=== PATIENT | male | born 1955 | race Caucasian/White ===

== ENCOUNTER → 2024-06-23 06:25 | Outpatient (REF) | payer MEDICARE, OTHER, SELFPAY ==
[2024-06-23 07:29] LABS: % Basophils 0.7 % (0-2); % Eosinophils 6.7 % (0-6); % Immature Granulocytes 0.2 % (0-0.5); % Lymphocytes 46.1 % (20.5-51.1); % Monocytes 11.1 % (1.7-9.3); % Neutrophils 35.2 % (42.2-75.2); Absolute Eosinophils 0.3 10^3/uL (0-0.7); Absolute Lymphocytes 2.1 10^3/uL (1.2-3.4); Absolute Monocytes 0.5 10^3/uL (0.1-0.6); Absolute Neutrophils 1.6 10^3/uL (1.4-6.5); Hematocrit 46.3 % (39.0-52.0); Hemoglobin 16.1 g/dL (13.0-18.0); Mean Corp Hgb Conc. 34.8 g/dL (33.0-37.0); Mean Corpuscular Hgb 31.9 pg (27.0-31.0); Mean Corpuscular Volume 91.9 fL (80.0-94.0); Mean Platelet Volume 8.9 fL (7.4-10.4); Nucleated Red Blood Cells % 0 % (-); Platelet Count 235 10^3/uL (130-400); Red Blood Cell Count 5.04 10^6/uL (4.70-6.10); Red Cell Dist. Width 13.2 % (11.5-14.5); White Blood Cell Count 4.6 10^3/uL (4.8-10.8)
[2024-06-23 07:50] LABS: Urine Albumin Negative (Neg - Trace); Urine Bilirubin Negative (Negative); Urine Character Clear (Clear); Urine Color Yellow; Urine Glucose Negative (Negative); Urine Ketone Negative (Negative); Urine Leukocyte Negative (Negative); Urine Nitrite Negative (Negative); Urine Occult Blood Negative (Negative); Urine Specific Gravity 1.015 (<1.030); Urine Urobilinogen Negative (Neg - 1+)
[2024-06-23 08:32] LABS: ALT (SGPT) 39 U/L (0-50); AST (SGOT) 37 U/L (17-59); Albumin 4.7 g/dl (3.5-5.0); Alkaline Phosphatase 39 U/L (38-126); Blood Urea Nitrogen 19 mg/dl (9-20); Calcium 9.7 mg/dl (8.4-10.2); Carbon Dioxide 30 mmol/L (22-30); Chloride 101 mmol/L (98-107); Glucose 116 mg/dl (70-99); HDL Cholesterol 72 mg/dl; LDL Cholesterol, Calculated 126 mg/dl; Potassium 4.8 mmol/L (3.5-5.1); Sodium 142 mmol/L (135-145); Total Bilirubin 1.8 mg/dl (0.2-1.3); Total Cholesterol 231 mg/dl (50-199); Total Protein 7.5 g/dl (6.3-8.2); Triglyceride 165 mg/dl (10-149); Very Low Density Lipoprotein 33 mg/dl (0-30); eGFR > 60.00
[2024-06-23 08:47] LABS: PSA, Total - Screen 0.96 ng/ml (0.0-4.0); TSH 2.49 uIU/ml (0.47-4.68)
[2024-06-23 09:40] LABS: Vitamin D, 25-OH*** 35.1 ng/mL (30-80)
== END ==
LOC: REG 06:25
PROVIDERS: ATTENDING PHYSICIAN Internal Medicine Geriatric Medicine
DX: E78.2 Mixed hyperlipidemia (principal); Z00.00 Encounter for general adult medical examination without abnormal findings; Z12.5 Encounter for screening for malignant neoplasm of prostate; Z79.899 Other long term (current) drug therapy
CPT/HCPCS: 36415; 80053; 80061; 81003; 82306; 84443; 85025; G0103

== ENCOUNTER → 2025-04-22 06:48 | Outpatient (REF) | payer MEDICARE, OTHER, SELFPAY ==
[2025-04-22 07:32] LABS: Hematocrit 43.0 % (39.0-52.0); Hemoglobin 14.8 g/dL (13.0-18.0); Mean Corp Hgb Conc. 34.4 g/dL (33.0-37.0); Mean Corpuscular Volume 91.9 fL (80.0-94.0); Nucleated Red Blood Cells % 0 % (-); Platelet Count 244 10^3/uL (130-400); Red Cell Dist. Width 13.2 % (11.5-14.5)
[2025-04-22 07:56] LABS: Urine Character Clear (Clear)
[2025-04-22 07:56] LABS: ALT (SGPT) 31 U/L (0-50); AST (SGOT) 28 U/L (17-59); Albumin 4.4 g/dl (3.5-5.0); Alkaline Phosphatase 43 U/L (38-126); Blood Urea Nitrogen 21 mg/dl (9-20); Calcium 9.7 mg/dl (8.4-10.2); Carbon Dioxide 27 mmol/L (22-30); Chloride 105 mmol/L (98-107); Glucose 111 mg/dl (70-99); HDL Cholesterol 65 mg/dl; LDL Cholesterol, Calculated 142 mg/dl; Potassium 4.6 mmol/L (3.5-5.1); Sodium 137 mmol/L (135-145); Total Protein 7.2 g/dl (6.3-8.2); Very Low Density Lipoprotein 26 mg/dl (0-30); eGFR > 60.00
[2025-04-24 01:08] LABS: Lipoprotein a (Lp a) 24 mg/dL (<=29)
== END ==
LOC: REG 06:48
PROVIDERS: ATTENDING PHYSICIAN Internal Medicine Geriatric Medicine
DX: E78.2 Mixed hyperlipidemia (principal); M54.41 Lumbago with sciatica, right side; N52.9 Male erectile dysfunction, unspecified; R73.01 Impaired fasting glucose; M54.16 Radiculopathy, lumbar region; Z13.31 Encounter for screening for depression; R93.1 Abnormal findings on diagnostic imaging of heart and coronary circulation
CPT/HCPCS: 36415; 80053; 80061; 81003; 82172; 83695; 85025

== ENCOUNTER 2025-05-21 06:23 | Day surgery (SDC) | payer MEDICARE, OTHER, SELFPAY | END 2025-05-21 10:42 | disposition home or self-care (01) | LOC: GI 06:23 | PROVIDERS: ATTENDING PHYSICIAN Internal Medicine Gastroenterology | DX: Z12.11 Encounter for screening for malignant neoplasm of colon (principal); K64.8 Other hemorrhoids; K57.30 Diverticulosis of large intestine without perforation or abscess without bleeding; D12.2 Benign neoplasm of ascending colon; D12.3 Benign neoplasm of transverse colon; D12.4 Benign neoplasm of descending colon; Z80.0 Family history of malignant neoplasm of digestive organs; Z86.0100 Personal history of colon polyps, unspecified | CPT/HCPCS: 45385; 45380; 88305 ==

== ENCOUNTER → 2025-05-26 09:50 | Outpatient (REF) | payer MEDICARE, OTHER, SELFPAY | LOC: RAD 09:50 | PROVIDERS: ATTENDING PHYSICIAN Internal Medicine Geriatric Medicine | DX: E78.2 Mixed hyperlipidemia (principal); R93.1 Abnormal findings on diagnostic imaging of heart and coronary circulation; M54.41 Lumbago with sciatica, right side; N52.9 Male erectile dysfunction, unspecified; R73.01 Impaired fasting glucose; M54.16 Radiculopathy, lumbar region; Z13.31 Encounter for screening for depression | CPT/HCPCS: 75574; Q9967 ==

== ENCOUNTER 2025-06-06 21:17 | Emergency (ER) | payer MEDICARE, OTHER, SELFPAY ==
[2025-06-06 21:23] VITALS: BP 141/90
--- NOTE | 2025-06-06 22:44 | ED.GENMED ---
History of Present Illness
General
Chief Complaint: Numbness
Source: patient, spouse (significant other) and previous radiology exam (CT coronary angiogram with contrast May 26 showing overall calcium score of 535, indicating extensive plaque burden. Focal calcification and narrowing of the distal left
main and proximal LAD in the range of 50% diameter reduction which could represent a hemodynamically significant stenosis. F)
Exam Limitations: none
Time Seen by Provider: 06/06/25 22:23
Nursing documentation reviewed up to this point in time: agreed with except (Patient has no prior history of hypertension.)
History of Present Illness
History of Present Illness:
The patient is a 69-year-old male who presents with numbness in the left arm. He reports waking up this morning with the sensation, which resolved but recurred later in the evening while sitting in a chair. He has not experienced any weakness,
dropping objects, chest pain nor shortness of breath. He mentions that the numbness was localized more towards his left upper arm to his left forearm. The patient denied associated symptoms like headache or chest discomfort and reports being active
without issues. The patient noted neck pain today, especially at the back, but no recent injury or trauma.
He exercises on a regular basis without symptomatology. He was lifting weights yesterday and was doing push-ups today again without symptomatology.
The patient recently underwent a cardiac computed tomography angiogram (CTA) which showed calcifications with a coronary artery calcium score over 500, leading to a referral for a follow-up with a clinical psychiatrist.
He has an initial appointment with Leonila Bettencourt this Sunday. He has a history of elevated cholesterol, tried statins in the past but experienced muscle aches. He states his LDL cholesterol is 150.
No family history of CAD. States his father had an aortic aneurysm later in life but he was a lifelong smoker as well.
Patient's daily medications include Eliquis 2.5 mg twice daily, vitamin D.
He currently denies numbness.
Past History
Past History
ED Past Medical History: Hypercholesterolemia, Other (DVT times 30 June 2020 and again August 2023. Reports unremarkable hypercoagulable workup with hematology. Chronically maintained on Eliquis 2.5 mg twice daily.) and Other (The patient has
a history of deep vein thrombosis (DVT) in 2019 and 2023 and is on lifelong anticoagulation with apixaban (Eliquis) at 2.5 mg twice a day. He also reports a history of hyperlipidemia with a total cholesterol level of 225 mg/dL and LDL at 150 mg/dL.)
ED Past Surgical History: Orthopedic
Social History
Tobacco: Non-smoker
Alcohol: Occasional (Rare alcohol use)
Drug: None
Personal:
Living: with family (Resides with his female partner)
Employment: Retired
Family History
Family History: Other (Father had an abdominal aortic aneurysm.)
Phy Exam
Physical Exam
Physical Exam:
GENERAL: 69-year-old gentleman appears his stated age, bright and alert, pleasant, appears in no acute distress.
EYE: anicteric
NECK: Supple, nontender, no meningismus, no significant adenopathy.
ENT: oral mucosa is moist. No rhinorrhea.
CARDIAC: Regular rate and rhythm. no murmur.
LUNGS: Clear breath sounds bilaterally, no acute respiratory distress, no wheezes/rales/rhonchi
ABDOMEN: Soft, nondistended, without focal tenderness, normoactive BS.
NEUROLOGICAL: Alert and oriented x3, no focal neuro deficits. Motor strength is 5/5 bilaterally. Gross sensation is intact.
SKIN: Warm and dry, normal color, skin intact. No rash.
MUSCULOSKELETAL: No C/C/E. peripheral pulses are full and equal b/l. No palpable tenderness.
PSYCH: Normal and appropriate interaction.
Course
Orders/Labs/Results
Orders:
Orders
06/06/25 21:18
EKG [Electrocardiogram (*1)] Urgent
Reason for Study: Tachycardia
EKG- Treatment ONCE
06/06/25 23:11
Complete Blood Count/With Diff Urgent
Comprehensive Metabolic Panel Urgent
Troponin I Urgent
Abnormal Lab Results
06/06/25
23:11
RBC 4.38 L 10^6/uL
(4.70-6.10)
MCH 31.5 H pg
(27.0-31.0)
Absolute Monos (auto) 0.7 H 10^3/uL
(0.1-0.6)
Monocytes % 11.6 H %
(1.7-9.3)
BUN 25 H mg/dl
(9-20)
Glucose 109 H mg/dl
(70-99)
06/06/25 23:11
06/06/25 23:11
Vital Signs
Initial and Last Documented VS:
Initial Vital Signs
Temp Pulse Resp BP Pulse Ox
98.0 F 84 20 141/90 97
06/06/25 21:23 06/06/25 21:23 06/06/25 21:23 06/06/25 21:23 06/06/25 21:23
Last Documented Vital Signs
Temp Pulse Resp BP Pulse Ox
98.0 F 68 18 122/72 95
06/06/25 21:23 06/06/25 23:05 06/06/25 23:05 06/06/25 23:05 06/06/25 23:05
MDM/Problems Addressed
Differential Diagnosis Includes:
The Differential Diagnosis includes, in no particular order and is not limited to:
1. Peripheral neuropathy
2. Cervical radiculopathy
3. Carpal tunnel syndrome
4. Myocardial ischemia
5. Transient ischemic attack
6. Brachial plexus injury
7. Muscular strain
8. Anxiety
9. Vitamin deficiency (such as B12 or D)
10. Thoracic outlet syndrome
MDM/Problems Addressed:
Acute Problems:
- Numbness in the left arm
Chronic Problems:
- Hyperlipidemia
- Recurrent DVT
Overall history appears more consistent with peripheral neuropathy such as ulnar nerve compression versus cervical radiculopathy.
Reassuring that patient has not no other associated symptoms and also reassuring that symptoms do not occur with activity/exercise.
CT coronary calcium score however significantly elevated over 500 with focal calcification of the distal left main and proximal LAD concerning for 50% focal narrowing.
He does have history of DVT x 2 with reported unremarkable hypercoagulable workup as per hematology. Due to DVT x 2 in the past, chronically maintained on Eliquis 2.5 mg twice daily.
There is nothing in history nor exam to suggest upper extremity DVT nor PE, he has had no chest pain or shortness of breath and remains active without symptomatology.
EKG shows normal sinus rhythm with first-degree AV block, overall similar and unchanged from previous EKG 2018
Will check labs including troponin.
At this point no indication for further radiologic studies.
Chronic conditions affecting care: Other (Hyperlipidemia; elevated coronary calcium score over 500; history of unprovoked DVTs x 2)
*Pulse Oximetry
SaO2: 97
Oxygen Mode of Delivery: Room air
Patient hypoxic: no
*EKG
Interpreted by ED Provider?: Yes
Comparison EKG: no changes (Unchanged from previous 2018)
Rate: normal
Rhythm: sinus
[place]: normal axis
Interval: first degree heart block
QRS Pattern: normal QRS
Ischemia: no ischemia
*Allopathic Doctor Interpretation
Rate: normal
Interpretation: normal
Rhythm: sinus
*Critical Care Note
Total Time (30-74mins, 75-104mins- exclusive of procedures): Not Applicable
Update Note
Update Note:
00:05
Labs are all unremarkable including negative troponin.
Patient remains asymptomatic.
Will discharge to home with plan for follow-up with cardiology as already scheduled, Sunday, June 10.
ED Attending Note
-
Portions of this chart may have been created with voice recognition software.� Occasional wrong word or��sound alike� substitutions may have occurred due to the inherent limitations of voice recognition software.
Discharge Plan
Departure
Patient Disposition: Home (Routine Discharge)
Date of Disposition: 06/07/25
Time of Disposition: 00:06
Patient with high blood pressure during this ER visit?: No
Condition: Good
Discharge Problem:
Left arm numbness
Instructions: Peripheral Neuropathy (DC), Paresthesia (DC)
Prescriptions:
No Action
cyclobenzaprine [Flexeril] 10 MG tablet
10 mg PO TID PRN (Reason: back pain)
prednisone 10 MG tablet
40 mg PO DAILY PRN (Reason: SEE TAPER)
Patient Comments:
patient is taking taper dose/back pain- STARTED 60MG DAILY X2 DAYS THAN DECREASE TO 40MG X 2 DAYS THAN 20MG X 2 DAYS THAN D/C
aspirin 81 MG tablet,delayed release (DR/EC)
81 - 162 mg PO DAILY
rivaroxaban [Xarelto] 15 MG tablet
15 mg PO BID Qty: 42 0RF
Rx Instructions:
15mg po BID with FOOD for first 21 days. After 21 days, start 20mg po DAILY with FOOD
Referrals:
Pio Fam MD [Family Provider, Internal Medicine]
Leonila Bettencourt MD [Active, Cardiology] - Keep scheduled appt
Interventions
Interventions:
*Risk Screen - Suicide Last Done: 06/06/25 23:05
*General Assessment Last Done: 06/06/25 21:23
*Neglect/Abuse Screening Last Done: 06/06/25 23:05
*ED- Fall Risk Assessment Last Done: 06/06/25 23:05
*ED COVID-19 Vaccine History Last Done: 06/06/25 23:05
*ED Influenza Vaccine History Last Done: 06/06/25 23:05
Discharge Date and Time
Print Language: RUSSIAN
[2025-06-06 23:04] VITALS: BMI 31.9
[2025-06-06 23:05] VITALS: BP 122/72
[2025-06-06 23:22] LABS: Hematocrit 40.1 % (39.0-52.0); Hemoglobin 13.8 g/dL (13.0-18.0); Mean Corp Hgb Conc. 34.4 g/dL (33.0-37.0); Mean Corpuscular Volume 91.6 fL (80.0-94.0); Nucleated Red Blood Cells % 0 % (-); Platelet Count 228 10^3/uL (130-400); Red Cell Dist. Width 13.4 % (11.5-14.5)
[2025-06-06 23:39] LABS: ALT (SGPT) 28 U/L (0-50); AST (SGOT) 28 U/L (17-59); Albumin 3.9 g/dl (3.5-5.0); Alkaline Phosphatase 39 U/L (38-126); Blood Urea Nitrogen 25 mg/dl (9-20); Calcium 9.4 mg/dl (8.4-10.2); Carbon Dioxide 29 mmol/L (22-30); Chloride 105 mmol/L (98-107); Estimated Creatinine Clearance 87 ml/min; Glucose 109 mg/dl (70-99); Potassium 4.8 mmol/L (3.5-5.1); Sodium 136 mmol/L (135-145); Total Protein 6.5 g/dl (6.3-8.2); eGFR > 60.00
[2025-06-06 23:50] LABS: Troponin I < 0.012 ng/ml
== END 2025-06-07 00:10 | disposition home or self-care (01) ==
LOC: EMR 21:17
PROVIDERS: EMERGENCY PHYSICIAN Emergency Medicine; FAMILY PHYSICIAN Internal Medicine Geriatric Medicine
DX: R20.0 Anesthesia of skin (principal); E78.00 Pure hypercholesterolemia, unspecified; I25.2 Old myocardial infarction; I44.0 Atrioventricular block, first degree; I45.10 Unspecified right bundle-branch block; Z79.01 Long term (current) use of anticoagulants; Z86.718 Personal history of other venous thrombosis and embolism
CPT/HCPCS: 99283; 80053; 84484; 85025; 93005

== ENCOUNTER → 2025-06-11 11:58 | Outpatient (REF) | payer MEDICARE, OTHER, SELFPAY | LOC: HWRCS 11:58 | PROVIDERS: ATTENDING PHYSICIAN Internal Medicine Cardiovascular Disease; FAMILY PHYSICIAN Internal Medicine Geriatric Medicine | DX: I25.10 Atherosclerotic heart disease of native coronary artery without angina pectoris (principal) | CPT/HCPCS: 78452; 93017; A9500 ==

== ENCOUNTER → 2025-06-15 15:42 | Outpatient (REF) | payer MEDICARE, OTHER, SELFPAY | LOC: HWRCS 15:42 | PROVIDERS: ATTENDING PHYSICIAN Internal Medicine Cardiovascular Disease; FAMILY PHYSICIAN Internal Medicine Geriatric Medicine | DX: I25.10 Atherosclerotic heart disease of native coronary artery without angina pectoris (principal) | CPT/HCPCS: 93306 ==

== ENCOUNTER → 2025-06-24 14:24 | Outpatient (REF) | payer MEDICARE, OTHER, SELFPAY | LOC: DHVS 14:24 | PROVIDERS: ATTENDING PHYSICIAN Internal Medicine Cardiovascular Disease; FAMILY PHYSICIAN Internal Medicine Geriatric Medicine | DX: I71.40 Abdominal aortic aneurysm, without rupture, unspecified (principal) | CPT/HCPCS: 76770 ==